=== PATIENT | male | born 1960 | race African-American/Black ===

== ENCOUNTER 2017-05-12 13:03 | Emergency (ER) | payer SELFPAY ==
[~2017-05-12] VITALS: Ht 162.6 cm; Wt 80.0 kg
[2017-05-12 13:06] VITALS: BP 225/108; PULSE 90; RESP 16; TEMP 98.4; O2SAT 99
[2017-05-12] MEDS ORDERED: GLIP5TAB8 PO ×2 (13:28→15:10)
[2017-05-12] MEDS ORDERED: CARV6.25 PO ×2 (13:28→15:10)
[2017-05-12] MEDS ORDERED: ENAL20TA81 PO ×2 (13:28→15:10)
[2017-05-12] MEDS ORDERED: ZOCO40TA PO ×2 (13:28→15:10)
[2017-05-12] MEDS ORDERED: cloNIDine HCL 0.2 MG TAB PO ONE (13:30)
--- NOTE | 2017-05-12 13:30 | PD ---
HPI Chief Complaint: Hypertension Time Seen by Provider: 13:16 Travel History International Travel<30 days: No Contact w/Intl Traveler<30days: No Traveled to known affect area: No History of Present Illness HPI This patient ran out of his medications 2 days ago. His blood pressure has been difficult to manage since. It's 225 systolic at this time. He has minimal bilateral frontal headache but no thunderclap onset or anything severe sustained. No neurologic complaint. He's had a bit of runny nose and congestion. No alleviating factors. Duration 2 days PFSH Past Medical History ?: Not Social History Alcohol Use: No Tobacco Use: No Substance Use: No Allergies-Medications (Allergen,Severity, Reaction): Coded Allergies: No Known Allergies (Unverified , 05/12/17) Reported Meds & Prescriptions Reported Meds & Active Scripts Active Glipizide 5 Mg Tab 5 Mg PO DAILY Take 30 minutes before a meal Coreg (Carvedilol) 6.25 Mg Tab 6.25 Mg PO BID Zocor (Simvastatin) 40 Mg Tab 40 Mg PO DAILY Vasotec (Enalapril Maleate) 20 Mg Tab 20 Mg PO DAILY Review of Systems General / Constitutional: No: Fever Eyes: No: Visual changes HENT: Positive: Headaches Cardiovascular: No: Chest Pain or Discomfort Respiratory: No: Shortness of Breath Gastrointestinal: No: Abdominal Pain Genitourinary: No: Dysuria Musculoskeletal: No: Pain Skin: No Rash Neurologic: Positive: Headache, No: Weakness Psychiatric: No: Depression Endocrine: No: Polydipsia Hematologic/Lymphatic: No: Easy Bruising Physical Exam Narrative GENERAL: Well-nourished, well-developed patient in no apparent distress. SKIN: Focused skin assessment reveals no rash and nodules. Skin is Warm and dry. HEAD: Atraumatic. Normocephalic. EYES: Pupils equal and round. No scleral icterus. No injection or drainage. ENT: No nasal bleeding or discharge. Mucous membranes pink and moist. NECK: Trachea midline. No JVD. CARDIOVASCULAR: Regular rate and rhythm. No murmur appreciated. RESPIRATORY: No accessory muscle use. Clear to auscultation. Breath sounds equal bilaterally. GASTROINTESTINAL: Abdomen soft, non-tender, nondistended. Hepatic and splenic margins not palpable. MUSCULOSKELETAL: No obvious deformities. No clubbing. No cyanosis. No edema. NEUROLOGICAL: Awake and alert. No obvious cranial nerve deficits. Motor grossly within normal limits. Normal speech. PSYCHIATRIC: Appropriate mood and affect; insight and judgment normal. Data Data Last Documented VS Vital Signs Date Time Temp Pulse Resp B/P (MAP) Pulse Ox O2 Delivery O2 Flow Rate FiO2 05/12/17 14:29 97.8 76 16 174/96 (122) 99 Room Air Orders Orders Clonidine (Catapres) (05/12/17 13:30) MDM Medical Decision Making Medical Screen Exam Complete: Yes Emergency Medical Condition: Yes Medical Record Reviewed: Yes Differential Diagnosis Hypertensive urgency, accelerated hypertension, noncompliance Narrative Course I have reviewed the patient's electronic medical record. I gave the patient doesn't clonidine and will reassess his pressure. He is neurologically intact and headache is minimal. I don't feel he requires emergent brain imaging. Recheck blood pressure 174 systolic I refilled all his medications He should check and record daily and follow up with primary care Additional Instructions: Check and record blood pressure daily The patient was advised to follow up with their physician and return if they worsen. Med/Other Pt SpecificInfo: Prescription(s) given Scripts Glipizide (Glipizide) 5 Mg Tab 5 MG PO DAILY for Blood Sugar Management, #30 TAB 0 Refills Take 30 minutes before a meal Prov: Tejas Kothari MD 05/12/17 Carvedilol (Coreg) 6.25 Mg Tab 6.25 MG PO BID, #60 TAB 0 Refills Prov: Tejas Kothari MD 05/12/17 Simvastatin (Zocor) 40 Mg Tab 40 MG PO DAILY for Cholesterol Management, #30 TAB 0 Refills Prov: Tejas Kothari MD 05/12/17 Enalapril (Vasotec) 20 Mg Tab 20 MG PO DAILY, #30 TAB 0 Refills Prov: Tejas Kothari MD 05/12/17 Disposition: 01 DISCHARGE HOME Condition: Stable Tejas Kothari MD May 12, 2017 13:30
[2017-05-12 13:31] VITALS: BP 178/98; PULSE 88; RESP 16; TEMP 97.8; O2SAT 99
[2017-05-12 14:29] VITALS: BP 174/96; PULSE 76; RESP 16; TEMP 97.8; O2SAT 99
[2017-05-12 15:20] VITALS: BP 149/82; TEMP 97.8
== END 2017-05-12 15:20 | disposition home or self-care (01) ==
LOC: NEPD 13:03
DX: I10 Essential (primary) hypertension (principal)
CPT/HCPCS: 99284

== ENCOUNTER 2017-06-23 13:35 | Emergency (ER) | payer SELFPAY ==
[~2017-06-23] VITALS: Ht 162.6 cm; Wt 82.0 kg
[~2017-06-23 13:35] MED LIST: CARV6.25 PO; ENAL20TA81 PO; GLIP5TAB8 PO; ZOCO40TA PO
[2017-06-23 13:37] VITALS: BP 186/96; PULSE 68; RESP 15; TEMP 98.6; O2SAT 95
--- NOTE | 2017-06-23 14:44 | PD ---
HPI Chief Complaint: Headache Time Seen by Provider: 14:43 Travel History International Travel<30 days: No Contact w/Intl Traveler<30days: No Traveled to known affect area: No History of Present Illness HPI 56-year-old male came to the emergency room saying that he has headache. His blood pressure was somewhat elevated in triage. He has history of hypertension and all his medications finished 2 days ago. Patient moved here 3 months ago and does not have a primary care physician yet. He was in the emergency department 6 weeks ago and got prescription refills then. He was wondering if he could get more prescription refills for all his medications. He is awake and answering questions appropriately. Headache is bilateral. It is 5 out of 10 as per him. No nausea vomiting. No neck stiffness. No fever or chills. No photophobia. PFSH Past Medical History Narrative Medical List of his past medical, surgical, social and family history is reviewed from the nursing note. Cardiovascular Problems: Yes High Cholesterol: Yes Diabetes: Yes Diminished Hearing: No Headaches: Yes Hypertension: Yes Social History Alcohol Use: No Tobacco Use: No Substance Use: No Allergies-Medications (Allergen,Severity, Reaction): Coded Allergies: No Known Allergies (Unverified , 06/23/17) Comments No known drug allergies. Reported Meds & Prescriptions Reported Meds & Active Scripts Active Glipizide 5 Mg Tab 5 Mg PO DAILY Take 30 minutes before a meal Coreg (Carvedilol) 6.25 Mg Tab 6.25 Mg PO BID Zocor (Simvastatin) 40 Mg Tab 40 Mg PO DAILY Vasotec (Enalapril Maleate) 20 Mg Tab 20 Mg PO DAILY Narrative Medication List of his home medications reviewed from the nursing note. Review of Systems Except as stated in HPI: all other systems reviewed are Neg Physical Exam Narrative GENERAL: Awake, alert, no obvious distress SKIN: Focused skin assessment warm/dry. HEAD: Atraumatic. Normocephalic. EYES: Pupils equal and round. No scleral icterus. No injection or drainage. ENT: No nasal bleeding or discharge. Mucous membranes pink and moist. NECK: Trachea midline. No JVD. CARDIOVASCULAR: Regular rate and rhythm. No murmur appreciated. RESPIRATORY: No accessory muscle use. Clear to auscultation. Breath sounds equal bilaterally. GASTROINTESTINAL: Abdomen soft, non-tender, nondistended. Hepatic and splenic margins not palpable. MUSCULOSKELETAL: No obvious deformities. No clubbing. No cyanosis. No edema. NEUROLOGICAL: Awake and alert. No obvious cranial nerve deficits. Motor grossly within normal limits. Normal speech. PSYCHIATRIC: Appropriate mood and affect; insight and judgment normal. Data Data Last Documented VS Orders Orders Enalapril (Vasotec) (06/23/17 15:00) Carvedilol (Coreg) (06/23/17 15:00) Acetaminophen (Tylenol) (06/23/17 15:00) Ed Discharge Order (06/23/17 15:43) MDM Medical Decision Making Medical Screen Exam Complete: Yes Emergency Medical Condition: Yes Medical Record Reviewed: Yes Differential Diagnosis Essential hypertension, no primary care physician, headache Narrative Course 3:17 PM patient was given a dose of his amlodipine and Coreg here. I've explained to him that the emergency room is not the place to continue to get prescription refills. I gave him a pamphlet for the [facility] and asked him to go there so that he can see another physician which would act as his primary care and give prescription refills. I will discharge him home once the blood pressure is repeated and lowered. Procedures EKG Prior to Arrival: No Diagnosis Primary Impression: Essential hypertension Additional Impression: Headache Qualified Codes: R51 - Headache Referrals: [facility] 1 day Additional Instructions: Please go to the clinic who is name and number been given to you. You need a primary care to give you prescriptions for your daily medications and refills. ER is not the place to continue to come back for prescription refill. Please return however if there is any emergent issues or new concerns. Med/Other Pt SpecificInfo: No Change to Meds Disposition: 01 DISCHARGE HOME Condition: Stable Gali Hollins MD Jun 23, 2017 14:43
[2017-06-23] MEDS ORDERED: CARVEDILOL 6.25 MG TAB PO ONE (15:00)
[2017-06-23] MEDS ORDERED: ACETAMINOPHEN 325 MG TAB PO ONE (15:00)
[2017-06-23] MEDS ORDERED: ENALAPRIL MALEATE 10 MG TAB PO ONE (15:00)
[2017-06-23 15:40] VITALS: BP 150/91; TEMP 97.6
== END 2017-06-23 15:40 | disposition home or self-care (01) ==
LOC: NEPD 13:35
DX: I10 Essential (primary) hypertension (principal); R51 Headache; Z76.0 Encounter for issue of repeat prescription
CPT/HCPCS: 99281